=== PATIENT | male | born 1980 | race African-American/Black ===

== ENCOUNTER 2019-12-20 19:19 | Inpatient (IN) | payer OTHER ==
[~2019-12-20] VITALS: Ht 177.8 cm; Wt 86.2 kg
--- NOTE | ~2019-12-20 | HC ---
[facility] [place] [address] CONSULTATION Name: DALILA SILVA Room #: 442-P ADM IN M.R.#: [id number] Admission: 12/20/19 Attend Phys: Tim Jeffers MD Discharge: Date of : 76 Report #: [id number] THIS REPORT FOR: cc: DENICE - No family physician/PCP DENICE - No family physician/PCP Mike Balderrama MD ~ CC: [facility] physician/PCP Tim Jeffers DATE OF SERVICE: 12/21/2019 REASON FOR CONSULTATION: Right femur fracture. HISTORY OF PRESENT ILLNESS: The patient is a 39-year-old gentleman who was running yesterday at full speed and trying to slow down when he tripped and fell. He projected forward on a concrete pavement and felt a snap in his right leg when this happened, obviously was unable to walk and he was brought to the Emergency Room and found to have a transverse femur fracture. Denies any antecedent thigh pain. No history of previous cancer or other medical comorbidities. PAST MEDICAL HISTORY: None. CURRENT MEDICATIONS: None. SOCIAL HISTORY: Does not smoke or drink. 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 PHYSICAL EXAMINATION: GENERAL: This is a well-developed, well-nourished male in no acute distress. He is alert and oriented, pleasant and cooperative. EXTREMITIES: Examination of the right lower extremity shows him to hold his right leg externally rotated and flexed. He is neurologically intact distally. He has a 2+ posterior tibial pulse. X-ray examination and CT scan of the right femur showed him to have a transverse femur fracture with moderate displacement. There is no evidence of pathologic bone or pathologic fracture. ASSESSMENT: Right transverse femur fracture. DISCUSSION/PLAN: Diagnosis and treatment options were discussed today with the patient and recommended treatment with an IM nail. Risks, benefits, alternatives, complications were discussed with him, he is understanding and wished to proceed. We will proceed to the operating room this morning for a closed reduction and intramedullary nailing. [address] [address] CONSULTATION Name: [facility] Room #: 442-P [facility] IN .R.#: [id number] Admission: 12/20/19 Attend Phys: Tim Jeffers MD Discharge: Date of : 76 Report #: [id number] Thank you for allowing us to participate in care of the patient. By: [id number] Mike Balderrama MD /nt
--- NOTE | ~2019-12-20 | O ---
[facility] [place] [address] OPERATIVE REPORT Name: DALILA SILVA Room #: 442-P ADM IN M.R.#: [id number] Admission: 12/20/19 Attend Phys: Tim Jeffers MD Discharge: Date of : 76 Report #: [id number] THIS REPORT FOR: cc: DENICE - No family physician/PCP DENICE - Susan family physician/PCP Mike Balderrama MD ~ CC: [facility] physician/PCP Tim Jeffers DATE OF SERVICE: 12/21/2019 PREOPERATIVE DIAGNOSIS: Right transverse midshaft femur fracture. POSTOPERATIVE DIAGNOSIS: Right transverse midshaft femur fracture. PROCEDURE: Treatment of right midshaft femur fracture with IM nail. SURGEON: Mike Balderrama MD ANESTHESIA: General. IMPLANTS: Pandey and Nephew size 9 x 38 Leonore-Alex nail with a 105/100 proximal 2-screw construct and a 42.5 and 47.5 distal locking screws. ESTIMATED BLOOD LOSS: 100 mL. COMPLICATIONS: None. SPECIMENS: None. CONDITION UPON LEAVING THE OPERATING ROOM: Stable. INDICATIONS FOR PROCEDURE: The patient is a 39-year-old gentleman who was running and fell and sustained a right midshaft transverse femur fracture. After discussion with he and his family, they elected for treatment with an IM nail. DESCRIPTION OF PROCEDURE: Risks, benefits, alternatives and complications were discussed in detail with the patient including but not limited to risk of anesthesia, risk of damage to nerves, arteries, blood vessels, risk for infection, bleeding, risk for malunion, nonunion, and need for reoperation. Informed consent was obtained from the patient. Right thigh was appropriately marked in the preoperative holding area. IV Ancef was given for preoperative antibiotics. He was brought to the operating room and placed in supine position on operating room table. General anesthesia was induced without complication. He was then transferred to the [place] table and right lower extremity was placed [address] [address] OPERATIVE REPORT Name: DALILA SILVA Room #: 442-P ADM IN M.R.#: [id number] Admission: 12/20/19 Attend Phys: Tim Jeffers MD Discharge: Date of : 76 Report #: [id number] in traction, left lower extremity was scissored. Fluoroscopic imaging was brought in to verify adequate fracture reduction and to verify that adequate images could be taken as was the case. Right thigh and hip were prepped and draped in normal sterile fashion. Timeout was performed properly identifying the patient and procedure as well as the instrumentation and implants. A 2-inch incision proximal to the greater trochanter was made in line with the femur with a 10 blade through the skin and fascia. Threaded tip guidewire was taken and placed on ____ level of the lesser trochanter under AP and lateral images. An entry portal reamer was used to ream the entry portal and a ball tip guidewire was then placed down across the fracture site all the way to the level of the superior patellar pole. The length of the nail was measured and found to be a 38. The femoral canal was then sequentially reamed up to a size 10.5, at which point there was excellent chatter of the reamer and we selected a 9 x 38 Leonore-Alex nail and this was placed down across the fracture site under fluoroscopic imaging and found to have good reduction of the fracture. The proximal cephalomedullary locking screws were then placed up into the femoral head, these were 105/100. Two distal locking screws were placed using the perfect eastern shoshone technique. These were 42.5 and 47.5 mm screws. After this, final fluoroscopic images were taken to verify adequate fracture reduction and placement of hardware as was the case. The wounds were thoroughly irrigated with normal saline and closed with 2-0 Vicryl and skin staple. Soft dressing was applied. The patient tolerated this procedure well and went to recovery room under care of anesthesia postoperatively. By: [id number] Mike Balderrama MD /nt
[2019-12-20 19:20] VITALS: BP 143/85
[2019-12-20 19:56] LABS: HEMOGLOBIN 13.9 gm/dL (14.0-18.0); MCH 30.1 pg (26.0-34.0); MCHC 33.2 g/dL (28.0-37.0); MCV 90.7 fL (80.0-100.0); RBC 4.63 mil/uL (4.50-6.00); RDW 12.3 % (10.5-14.5); WBC 5.2 thou/uL (4.0-11.0)
[2019-12-20 20:03] LABS: CALCIUM 9.2 mg/dL (8.5-10.1); CREATININE 1.4 mg/dL (0.7-1.3)
[2019-12-20 20:05] LABS: POTASSIUM 3.7 mmol/L (3.5-5.1); PROTIME 10.1 Seconds (9.3-11.4)
[2019-12-20 21:24] VITALS: BP 143/85
[2019-12-20 21:46] LABS: URINE BILIRUBIN NEGATIVE (Negative); URINE BLOOD NEGATIVE (Negative); URINE CLARITY CLEAR; URINE COLOR YELLOW; URINE GLUCOSE-RANDOM* NEGATIVE (Negative); URINE KETONES NEGATIVE (Negative); URINE LEUKOCYTES-REFLEX NEGATIVE (Negative); URINE NITRITE-REFLEX NEGATIVE (Negative); URINE PROTEIN (DIPSTICK) NEGATIVE (Negative); URINE SPECIFIC GRAVITY 1.025 (1.005-1.035); URINE UROBILINOGEN 0.2 E.U./dl (0.2-1.0)
[2019-12-20 21:58] VITALS: BP 161/107
[2019-12-20 22:15] VITALS: BP 178/93
[2019-12-21] VITALS (10 sets, daily range): BP systolic 129–149; BP diastolic 78–92
--- NOTE | 2019-12-21 06:01 | NUR ---
PT TO UNIT AROUND 2229. ADMISSION ASSESSMENT COMPLETED. PT ORIENTED TO STAFF, UNIT AND USE OF CALL LIGHT. NPO SINCE MIDNIGHT FOR SURGERY TO FIX FEMUR FX TODAY BY DR NIX. PT REPORTING SEVERE PAIN, GIVEN IV PAIN MEDS. FLUIDS INFUSING PER ORDER. ICE PACK ON RIGHT FEMUR. ORDERS FOR ROWE TRACTION- HOUSE SUP COULD NOT FIND ONE. FAMILY AT BEDSITE, AWAITING SX.
[2019-12-21 14:11] LABS: HEMATOCRIT 40.6 % (42.0-52.0); HEMOGLOBIN 13.4 gm/dL (14.0-18.0); MCHC 32.9 g/dL (28.0-37.0); MCV 91.4 fL (80.0-100.0); RBC 4.45 mil/uL (4.50-6.00); RDW 12.3 % (10.5-14.5); WBC 7.6 thou/uL (4.0-11.0)
--- NOTE | 2019-12-21 16:31 | NUR ---
PT ADMITTED RELATED TO RT FEMUR FX S/P IM NAILING. CM REVIEWED CHART AND SPOKE WITH CARE TEAM. CM MET WITH PT AT BEDSIDE THIS DAY. PT IS A&O X4. CM ROLE INTRODUCED. PT INDICATED HE LIVES IN AN APARTMENT WITH HIS SPOUSE WITH 12 STEPS TO ENTER AND NO STEPS INSIDE. 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 PT INDICATED HE DOESN'T HAVE A PCP. PT INDICATED NO DME, HH, OR OP THERAPY HISTORY. PT HADN'T BEEN ASSESSED BY THERAPY AND THERE WAS NOT INDICATION OF POSSIBLE WEIGHT BEARING NEEDS. [facility] IN IN NETWORK FOR DME PHONE: FAX: . [facility] ARE IN NETWORK SHOULD PT NEED HH. CM TO FOLLOW INDICATED WITH DC PLANNING.
--- NOTE | 2019-12-22 03:18 | NUR ---
PT AOX4. PT REPORTS PAIN IN RLE. PT RECEIVING PRN IV FENTANYL Q3HR AND PRN PO OXYCODONE Q4HR. PT REPORTS RELUCTANCE WITH ROM DUE TO REPORTS OF RLE FEELING 'LIKE WEIGHT'. PT REPORTS INCREASE IN PAIN TO RLE WITH TACTILE STIMULATION AND SOME MOVEMENT. TRACE EDEMA NOTED TO RLE. PROVIDED REASSURANCE THAT PHYSICAL THERAPY WILL WORK WITH HIM TO HELP WITH ACTIVITY AND MOBILITY. ENCOURAGED FREQUENT REPOSITIONING. REQUIRES X1 ASSIST WITH REPOSITIONING. PT REFUSES FREQUENT REPOSITIONING ONCE ON LEFT SIDE DUE TO REPORT OF COMFORT. PT , FAN AFEBRILE AT BEDSIDE THROUGHOUT NIGHT. PT TOLERATING PO INTAKE OF FLUIDS ON REGULAR DIET WITHOUT ISSUE. ENCOURAGED PT TO NOTIFY STAFF FOR ALL NEEDS. CALL LIGHT WITHIN REACH, BED ALARM ON, BED IN LOWEST POSITION. WILL CONTINUE TO MONITOR.
[2019-12-22 05:54] LABS: HEMATOCRIT 37.8 % (42.0-52.0); HEMOGLOBIN 12.4 gm/dL (14.0-18.0); MCH 30.2 pg (26.0-34.0); MCHC 32.8 g/dL (28.0-37.0); MCV 92.3 fL (80.0-100.0); RBC 4.1 mil/uL (4.50-6.00); RDW 12.5 % (10.5-14.5); WBC 6.5 thou/uL (4.0-11.0)
[2019-12-22 06:02] LABS: CALCIUM 8.9 mg/dL (8.5-10.1); CREATININE 1.3 mg/dL (0.7-1.3); POTASSIUM 3.8 mmol/L (3.5-5.1)
[2019-12-22 08:35] VITALS: BP 109/62
[2019-12-22 09:00] VITALS: BP 109/62
[2019-12-22 10:52] VITALS: BP 109/62
--- NOTE | 2019-12-22 11:53 | NUR ---
PT CARE ASSUMED AT 0700. A&Ox4. PT IN ROOM. BP IN NORMAL RANGE TODAY BUT PT CONINUES TO RUN TACH AT 96. ICE PACK APPLIED TO RIGHT HIP. PT ON BOARD. PT IS UP IN THE RECLINER. PAIN MANAGED WELL. SCD'D AND MARY LOU HOSES IN PLACE. PT CAN DC TOMORROW IF CLEARED BY PT. PER ORTHO. IV PATENT WITH NO REDNESS OR EDEMA. SALINE LOCKED. UP WITH GAITBELT AND A WALKER. FALL PROTOCOLL IN PLACE. CALL LIGHTIN REACH. WILL CONTINUE TO MONITOR.
[2019-12-22 17:13] VITALS: BP 106/58
[2019-12-22 20:13] VITALS: BP 112/72
--- NOTE | 2019-12-23 01:13 | NUR ---
PT AMBULATING TO BATHROOM WITH STANDBY ASSIST AND IS TOLERATING FAIR. PERCOCET PROVIDING PAIN RELIEF. RESTING COMFORTABLY. NO NEEDS VOICED. CALL LIGHT WITHIN REACH. FREQUENT OBSERVATION.
[2019-12-23 04:16] LABS: HEMOGLOBIN 11.2 gm/dL (14.0-18.0); MCH 30.4 pg (26.0-34.0); MCHC 33.1 g/dL (28.0-37.0); MCV 91.8 fL (80.0-100.0); RBC 3.7 mil/uL (4.50-6.00); RDW 12.3 % (10.5-14.5); WBC 5.6 thou/uL (4.0-11.0)
[2019-12-23 07:41] VITALS: BP 108/68
--- NOTE | 2019-12-23 11:48 | NUR ---
Assumed care of pt at 0700. Pt able to ambulate with gait-belt and walker SBA. [place] nauseous when first getting out of bed. Anti-emetic administered. Relief obtained. Pain controlled with prn pain meds. Dressing changed. Room air. Family at bedside. Fall precautions in place. Will continue to monitor.
[2019-12-23 16:09] VITALS: BP 113/62
[2019-12-23 21:50] VITALS: BP 121/75
[2019-12-24 03:40] VITALS: BP 118/71
--- NOTE | 2019-12-24 05:44 | NUR ---
PT UP WITH ROLLER WALKER TO THE BATHROOM. IN ROOM AND HELPS PATIENT WITH EVERYTHING. PATIENT GIVEN OXYCODONE ONE TIME THRO THE NIGHT FOR A PAIN OF 5/10.DRSG TO R HIP C/D/I.AFEBRILE.VSS. NO FURTHER CONCERNS.
[2019-12-24 07:50] VITALS: BP 121/81
--- NOTE | 2019-12-24 14:08 | NUR ---
CARE TEAM INDICATED THAT PT IS MEDICALLY STABLE TO DISHCARGE HOME THIS DAY. CM MET WITH AND PT AT [facility] THIS AFTERNOON AND THEY ARE AWARE AND AGREEABLE. CM HAD ATTEMPTED TO ORDER CRUTCHES FOR DC HOME THIS DAY THROUGH [facility]. [facility] SAID THEY DON'T DELIVER CRUTCHES AND [facility] DIDN'T HAVE ANY IN STOCK BUT SAID THEY COULD DELIVER THEM TO PT'S HOME IN A FEW DAYS. PT NEEDS THEM TO GET INTO HIS APARTMENT. CM REQUESTED AND RECEIVED PERMISSION TO VOUCHER CRUTCHES THROUGH [employer] FOR DC TODAY. THEY WERE DELIVERED. AWAITING DC ORDERS. NO OTHER DC NEEDS ANTICIPATED.
[2019-12-24] MEDS ORDERED: PERCOCET PO (14:41)
[2019-12-24 15:23] VITALS: BP 121/81
[2019-12-24 15:35] VITALS: BP 118/64
--- NOTE | 2019-12-24 17:08 | NUR ---
Assumed care of pt at 0700. Pt a&ox4. Pain controlled with prn pain meds. Dressing c/d/i. Crutches that patient will take home are delivered. Worked with physical therapy. Family at bedside. Discharged to home.
== END 2019-12-24 16:21 | disposition home or self-care (01) | DRG 482 ==
LOC: ER 19:19 → EROBS 20:51 → 4S 20:51
PROVIDERS: Emergency Medicine Emergency Medical Services; Orthopaedic Surgery; ADMIT Hospitalist
PROC: 0QS806Z Reposition Right Femoral Shaft with Intramedullary Internal Fixation Device, Open Approach (ICD-10-PCS; principal; 2019-12-21)
DX: S72.321A Displaced transverse fracture of shaft of right femur, initial encounter for closed fracture (principal); S72.491A Other fracture of lower end of right femur, initial encounter for closed fracture; S72.001A Fracture of unspecified part of neck of right femur, initial encounter for closed fracture; S72.8X1A Other fracture of right femur, initial encounter for closed fracture; W18.39XA Other fall on same level, initial encounter; Y93.02 Activity, running; Y92.89 Other specified places as the place of occurrence of the external cause; Y99.8 Other external cause status; Z79.82 Long term (current) use of aspirin; Z79.899 Other long term (current) drug therapy
CPT/HCPCS: 10195; 50010; 50101; 50386; 51412; 51538; 52304; 56524; 56526; 57092; 62110; 62900; 70005